=== PATIENT | female | born 1990 | race Caucasian/White ===

== ENCOUNTER → 2023-04-27 01:37 | Outpatient (CLI) | payer OTHER, SELFPAY ==
--- NOTE | 2023-04-27 11:17 | DI.RAD_ITS ---
Exam(s) XR LUMBAR SPINE AP, LAT EXAM: XR LUMBAR SPINE AP, LAT CLINICAL HISTORY: DISABILITY DETERMINATION,Z02.71,LOW BACK PAIN,STATE SEVERITY. TECHNIQUE: 2D digital imaging was performed. COMPARISON: No exams were available for comparison FINDINGS: Two views. No evidence of fracture, listhesis, nor pars defects. There is no disc space narrowing. Bone densit y normal. No osseous lesions. No scoliosis. Sacroiliac joints appear unremarkable. IMPRESSION: No significant radiograph findings on these two views of the lumbosacral spinal column. DATA REPOSITORY: RADIATION DOSE DELIVERED:
--- NOTE | 2023-04-27 11:18 | DI.RAD_ITS ---
Exam(s) XR CERVICAL SP POSADA TRAUMA 2-3V EXAM: XR CERVICAL SP POSADA TRAUMA 2-3V CLINICAL HISTORY: DISABILITY DETERMINATION,Z02.71,NECK PAIN,STATE SEVERITY. TECHNIQUE: 2D digital imaging was performed. COMPARISON: No exams were available for comparison FINDINGS: Four views. No evidence fracture, listhesis, nor offset of the spinal laminar line. No disc space narrowing. No cervical ribs. No facet arthropathy nor facet malalignment. No prevertebral soft tissue swelling. However, the lateral view reveals some reversal of the normal curvature cervical spine which is proba tc related to muscle spasm. IMPRESSION: No acute osseous findings and no disc space narrowing. Reversal of the curvature as described above. DATA REPOSITORY: RADIATION DOSE DELIVERED:
--- NOTE | 2023-04-27 11:18 | DI.RAD_ITS ---
Exam(s) XR HIP LT COMPLETE AP PELVIS EXAM: XR HIP LT COMPLETE AP PELVIS CLINICAL HISTORY: LT HIP PAIN, DISABILITY DETERMINATION,Z02.71,STATE SEVERITY. TECHNIQUE: 2D digital imaging was performed. COMPARISON: No exams were available for comparison FINDINGS: Two views. No evidence of pelvic nor hip fractures. No evidence of avascular necrosis no evidence of developmen [place] hip dysplasia. Sacroiliac joints appear unremarkable. There are no degenerative changes in the hips. Bone density normal. No osseous lesions. Additional lateral view of the left hip reveals no evidence of osteophytes nor joint space narrowing. IMPRESSION: No significant osseous findings in the pelvis and hips. DATA REPOSITORY: RADIATION DOSE DELIVERED:
== END ==
PROVIDERS: Visit Provider Pediatrics Pediatric Rheumatology
DX: Z02.71 Encounter for disability determination (principal)
CPT/HCPCS: 72040; 72100; 73502

== ENCOUNTER 2023-06-09 01:51 | Outpatient (CLI) | payer MEDICAID, SELFPAY ==
[2023-06-09 09:41] LABS: Abs Immature Grans 0.05 10^3/uL (0.0-0.06); Absolute Basophil Count 0.04 10^3/uL (0.0-0.2); Absolute Eosinophil Count 0.11 10^3/uL (0.0-0.7); Absolute Lymphocyte Count 2.01 10^3/uL (1.2-3.4); Absolute Monocyte Count 0.56 10^3/uL (0.1-0.8); Basophils % 0.3; Eosinophils % 0.8; HCT 37.5 % (36.0-46.0); HGB 12.3 g/dL (11.2-15.7); Immature Grans % 0.4; MCH 29.4 pg (27.0-33.0); MCHC 32.8 % (32.0-36.0); MCV 90 fL (80-95); MPV 10.1 fL (8.0-11.0); Monocytes % 4.2; Neutrophils % 79.3; Platelet Count 445 10^3/uL (130-400); RBC 4.18 10^6/uL (3.93-5.22); RDW-SD 42.5 fL; WBC 13.37 10^3/uL (4.4-10.8)
[2023-06-09 10:36] LABS: Iron 59 ug/dL (50-170); Total Iron Binding Capacity 262 ug/dL (250-450); Transferrin Sat 23 % (15-50)
[2023-06-09 10:37] LABS: ALT 19 U/L (14-59); AST 16 U/L (15-37); Albumin 3.5 g/dL (3.4-5.0); Alkaline Phosphatase 127 U/L (46-116); Anion Gap 10.7 mmol/L (3-11); BUN 12 mg/dL (7-18); Bilirubin, Total 0.5 mg/dL (0.2-1.0); CO2 26.3 mmol/L (21.0-32.0); CREATININE 0.9 mg/dL (0.55-1.02); Calcium 9.2 mg/dL (8.5-10.1); Chloride 100 mmol/L (98-107); Estimated GFR 87.65 (mL/min/1.73m2); Ferritin 46 ng/mL (8-252); Glucose 114 mg/dL (74-106); Potassium 4.4 mmol/L (3.5-5.1); Sodium 137 mmol/L (136-145); Vitamin B12 746 pg/mL (193-986)
[2023-06-09 10:39] LABS: Folate > 20.0 ng/mL (8.6-20.0)
== END 2023-06-09 01:52 | disposition home or self-care (01) ==
LOC: LBO 01:51
PROVIDERS: Visit Provider Naturopath
DX: G25.81 Restless legs syndrome (principal); K52.9 Noninfective gastroenteritis and colitis, unspecified
CPT/HCPCS: 36415; 80053; 82607; 82728; 82746; 83540; 83550; 83735; 85025

== ENCOUNTER 2023-06-29 03:13 | Outpatient (CLI) | payer MEDICAID, SELFPAY ==
[2023-06-29 10:48] LABS: Abs Immature Grans 0.05 10^3/uL (0.0-0.06); Absolute Basophil Count 0.06 10^3/uL (0.0-0.2); Absolute Eosinophil Count 0.46 10^3/uL (0.0-0.7); Basophils % 0.5; Eosinophils % 3.9; HCT 36.9 % (36.0-46.0); HGB 12.1 g/dL (11.2-15.7); Immature Grans % 0.4; Lymphocytes % 21.9; MCH 29.7 pg (27.0-33.0); MCHC 32.8 % (32.0-36.0); MCV 90 fL (80-95); MPV 11.2 fL (8.0-11.0); Monocytes % 4.1; Neutrophils % 69.2; Platelet Count 417 10^3/uL (130-400); RBC 4.08 10^6/uL (3.93-5.22); RDW 13.3 % (11.7-14.6); RDW-SD 44.1 fL; WBC 11.85 10^3/uL (4.4-10.8)
[2023-06-29 10:50] LABS: Absolute Monocyte Count 0.49 10^3/uL (0.1-0.8)
[2023-06-29 10:53] LABS: ESR 42 mm/hr (0-20)
[2023-06-29 12:06] LABS: ALT 32 U/L (14-59); AST 22 U/L (15-37); Albumin 3.5 g/dL (3.4-5.0); Alkaline Phosphatase 113 U/L (46-116); Anion Gap 10.8 mmol/L (3-11); BUN 14 mg/dL (7-18); Bilirubin, Total 0.4 mg/dL (0.2-1.0); CO2 28.2 mmol/L (21.0-32.0); CREATININE 0.9 mg/dL (0.55-1.02); Chloride 102 mmol/L (98-107); Estimated GFR 87.65 (mL/min/1.73m2); Glucose 107 mg/dL (74-106); Potassium 3.8 mmol/L (3.5-5.1); Sodium 141 mmol/L (136-145); Total Protein 7.6 g/dL (6.4-8.2)
[2023-06-29 19:27] LABS: C-Reactive Protein 2.84 mg/dL (<or=0.5)
[2023-06-30 14:33] LABS: ANA Interpretation Negative (Negative)
[2023-06-30 17:32] LABS: dsDNA Ab, IgG <22.0 IU/mL (<27.0)
[2023-06-30 18:33] LABS: RNP Ab, IgG <6.0 CU (<20.0); Sm (Smith) Ab, IgG <8.0 CU (<20.0)
== END 2023-06-29 03:14 | disposition home or self-care (01) ==
LOC: LBO 03:13
PROVIDERS: Visit Provider Naturopath
DX: G25.81 Restless legs syndrome (principal); K52.9 Noninfective gastroenteritis and colitis, unspecified
CPT/HCPCS: 36415; 80053; 85652; 85025; 86038; 86140; 86225; 86235

== ENCOUNTER → 2023-09-07 03:07 | Outpatient (CLI) | payer MEDICAID, SELFPAY ==
--- NOTE | 2023-09-07 | DI.DEXA_ITS ---
Exam(s) XR DEXA BONE DENSITY W/WO MANUEL EXAM: XR DEXA BONE DENSITY W/WO MANUEL CLINICAL HISTORY: N91.2 Amenorrhea TECHNIQUE: Routine DEXA evaluation of the lumbar spine, hip, or forearm. COMPARISON: No exams were available for comparison FINDINGS: Performed on a Hologic unit. Lateral image: No compression fracture evident. Lumbar Spine total T-score: -1.2 Hip total T-score:1.4 Independent reading at the level of the femoral neck yields T-score of 0.8 Forearm total T-score: -1.5 IMPRESSION: Bone mineral density measures in the osteopenia range. Fracture risk is moderate. Note: Any spine fracture indicates 5x risk for subsequent spine fracture and 2x risk for subsequent h ip fracture. World Health Organization criteria for BMD interpretation classify patients: Normal...... T- Score at or above -1.0 Osteopenic... T- Score between -1.0 and -2.5 Osteoporosis... T-Score at or below -2.5
== END ==
PROVIDERS: PCP Registered Nurse Critical Care Medicine; Visit Provider Internal Medicine Endocrinology, Diabetes & Metabolism
DX: Z13.820 Encounter for screening for osteoporosis (principal); N91.2 Amenorrhea, unspecified
CPT/HCPCS: 77080

== ENCOUNTER 2023-09-07 10:55 | Outpatient (CLI) | payer MEDICAID, SELFPAY ==
[2023-09-07 10:51] LABS: ALT 39 U/L (14-59); AST 23 U/L (15-37); Albumin 3.7 g/dL (3.4-5.0); Alkaline Phosphatase 104 U/L (46-116); BUN 9 mg/dL (7-18); Bilirubin, Total 0.4 mg/dL (0.2-1.0); CREATININE 0.9 mg/dL (0.55-1.02); Calcium 9.1 mg/dL (8.5-10.1); Chloride 102 mmol/L (98-107); Estimated GFR 87.65 (mL/min/1.73m2); FREE T4 1.16 ng/dL (0.76-1.46); Glucose 110 mg/dL (74-106); Potassium 3.8 mmol/L (3.5-5.1); Sodium 139 mmol/L (136-145); TSH 0.23 uIU/Ml (0.36-3.74); Total Protein 7.7 g/dL (6.4-8.2)
[2023-09-07 11:22] LABS: Vitamin D 25 Total 29.8 ng/mL (30-100)
[2023-09-07 11:36] LABS: Vitamin B12 1186 pg/mL (193-986)
[2023-09-07 19:12] LABS: T3,Free 5.8 pg/mL (2.8-5.3)
[2023-09-07 19:58] LABS: Estradiol 16 pg/mL (See Note); Progesterone 0.2 ng/mL (See Table)
[2023-09-07 20:06] LABS: FSH 6.6 mIU/mL (See Note); Parathyroid Hormone,Intact 71 pg/mL (19-88); Prolactin 0.4 ng/mL (See Note)
[2023-09-08 19:10] LABS: Adrenocorticotropic Hormone, P 18 pg/mL
[2023-09-13 18:38] LABS: IGF-1, LC/MS, S 97 ng/mL (59-279); Z-score -1.04 SD
[2023-09-15 16:33] LABS: Testosterone, Bioavailable 2.3 ng/dL; Testosterone, Free 0.21 ng/dL (<0.13-1.03); Testosterone, Total 9.4 ng/dL (8-60)
== END 2023-09-07 10:56 | disposition home or self-care (01) ==
LOC: LBO 10:56
PROVIDERS: PCP Registered Nurse Critical Care Medicine; Visit Provider Internal Medicine Endocrinology, Diabetes & Metabolism
DX: E28.2 Polycystic ovarian syndrome (principal); E23.6 Other disorders of pituitary gland
CPT/HCPCS: 36415; 80053; 82306; 82533; 84402; 84403; 84410; 82024; 82607; 82670; 83001; 83002; 83970; 84144; 84146; 84305; 84439; 84443; 84481

== ENCOUNTER 2024-05-23 02:00 | Outpatient (CLI) | payer BC, SELFPAY ==
[2024-05-23 08:03] LABS: Hemoglobin A1C 5.5 % (<5.7)
[2024-05-23 08:13] LABS: Iron 44 ug/dL (50-170); Total Iron Binding Capacity 239 ug/dL (250-450); Transferrin Sat 18 % (15-50)
[2024-05-23 08:25] LABS: TSH 1.11 uIU/mL (0.36-3.74)
[2024-05-23 08:43] LABS: Calculated LDL 143 mg/dL (<100); Cholesterol 211 mg/dL (<200); Ferritin 62 ng/mL (8-252); Folate 13.5 ng/mL (8.6-20.0); HDL Cholesterol 45 mg/dL (40-60); Triglyceride 116 mg/dL (<150); Vitamin B12 727 pg/mL (193-986); Vitamin D 25 Total 54.1 ng/mL (30-100)
[2024-05-23 09:00] LABS: FREE T4 1.16 ng/dL (0.76-1.46)
[2024-05-23 21:47] LABS: T3,Free 4.2 pg/mL (2.8-5.3)
[2024-05-23 22:39] LABS: Prolactin 25.3 ng/mL (See Note)
[2024-05-24 09:27] LABS: Homocysteine 8.8 umol/L (5.0-13.9)
[2024-05-27 13:12] LABS: Apolipoprotein A1, S 116 mg/dL (>=140); Apolipoprotein B, S 120 mg/dL (See Comment)
== END 2024-05-23 02:01 | disposition home or self-care (01) ==
PROVIDERS: Internal Medicine Endocrinology, Diabetes & Metabolism; PCP Registered Nurse Critical Care Medicine; Visit Provider Naturopath
DX: N92.1 Excessive and frequent menstruation with irregular cycle (principal); E78.5 Hyperlipidemia, unspecified; E61.1 Iron deficiency; E55.9 Vitamin D deficiency, unspecified; E06.3 Autoimmune thyroiditis
CPT/HCPCS: 36415; 80061; 82172; 82306; 83090; 82607; 82728; 82746; 83036; 83540; 83550; 84146; 84439; 84443; 84481

== ENCOUNTER 2024-11-27 13:06 | Outpatient (CLI) | payer BC, SELFPAY ==
[2024-11-27 11:39] LABS: Hemoglobin A1C 5.0 % (<5.7)
[2024-11-27 11:48] LABS: TSH 0.59 uIU/mL (0.36-3.74)
[2024-11-27 12:02] LABS: Calculated LDL 172 mg/dL (<100); Cholesterol 233 mg/dL (<200); HDL Cholesterol 41 mg/dL (>or=50); Triglyceride 101 mg/dL (<150)
[2024-11-27 14:53] LABS: Abs Immature Grans 0.06 10^3/uL (0.0-0.06); HCT 36.6 % (36.0-46.0); HGB 12.5 g/dL (11.2-15.7); Immature Grans % 0.5 %; MCH 31.4 pg (27.0-33.0); MCHC 34.2 % (32.0-36.0); MCV 92 fL (80-95); MPV 11.0 fL (8.0-11.0); Platelet Count 407 10^3/uL (130-400); RBC 3.98 10^6/uL (3.93-5.22); RDW 12.3 % (11.7-14.6); RDW-SD 40.8 fL; WBC 12.61 10^3/uL (4.4-10.8)
[2024-11-27 18:33] LABS: FSH 4.2 mIU/mL (See Note); LH 4.9 mIU/mL (See Note)
[2024-11-27 22:44] LABS: ALT 26 U/L (14-59); AST 21 U/L (15-37); Albumin 3.5 g/dL (3.4-5.0); Alkaline Phosphatase 97 U/L (46-116); Anion Gap 11.2 mmol/L (3-11); BUN 11 mg/dL (7-18); Bilirubin, Total 0.3 mg/dL (0.2-1.0); CO2 25.8 mmol/L (21.0-32.0); Calcium 9.2 mg/dL (8.5-10.1); Chloride 101 mmol/L (98-107); Ferritin 78 ng/mL (8-252); Glucose 92 mg/dL (74-106); Potassium 4.1 mmol/L (3.5-5.1); Sodium 138 mmol/L (136-145); Total Protein 7.5 g/dL (6.4-8.2); Vitamin B12 1097 pg/mL (193-986)
[2024-11-27 22:52] LABS: Folate > 20.0 ng/mL (8.6-20.0)
[2024-11-27 22:56] LABS: Estimated GFR 117.77 (mL/min/1.73m2)
[2024-11-27 23:14] LABS: T3,Free 3.9 pg/mL (2.8-5.3)
[2024-11-27 23:56] LABS: CRP, High Sensitivity >15.00 mg/L (See Note)
[2024-11-28 18:40] LABS: Iron 50 ug/dL (50-170); Total Iron Binding Capacity 246 ug/dL (250-450); Transferrin Sat 20 % (15-50)
[2024-11-28 19:48] LABS: Vitamin D 25 Total 42 ng/mL (30-100)
[2024-11-29 12:11] LABS: Adrenocorticotropic Hormone, P 23 pg/mL
[2024-12-01 07:37] LABS: Apolipoprotein A1, S 127 mg/dL (>=140); Apolipoprotein B, S 133 mg/dL (See Comment); Apolipoprotein B/A 1 ratio 1.0 (See Comment)
[2024-12-01 17:47] LABS: Estradiol, Mass Spectrometry 121 pg/mL
== END 2024-11-27 13:07 | disposition home or self-care (01) ==
LOC: LBO 13:07
PROVIDERS: Internal Medicine; Nurse Practitioner Psychiatric/Mental Health; PCP Registered Nurse Critical Care Medicine; Visit Provider Naturopath
DX: E78.2 Mixed hyperlipidemia (principal); N92.6 Irregular menstruation, unspecified; E23.6 Other disorders of pituitary gland; E03.9 Hypothyroidism, unspecified
CPT/HCPCS: 36415; 80053; 80061; 80186; 82172; 82306; 82525; 82533; 83090; 84630; 86141; 82024; 82607; 82670; 82679; 82728; 82746; 83001; 83002; 83036; 83525; 83540; 83550; 84146; 84207; 84439; 84443; 84481; 85025

== ENCOUNTER 2025-02-26 01:55 | Outpatient (CLI) | payer BC, SELFPAY ==
[2025-02-26 17:02] LABS: Abs Immature Grans 0.05 10^3/uL (0.0-0.06); HCT 38.1 % (36.0-46.0); HGB 12.5 g/dL (11.2-15.7); Immature Grans % 0.5 %; MCH 29.9 pg (27.0-33.0); MCHC 32.8 % (32.0-36.0); MCV 91 fL (80-95); MPV 11.1 fL (8.0-11.0); Platelet Count 398 10^3/uL (130-400); RBC 4.18 10^6/uL (3.93-5.22); RDW 12.0 % (11.7-14.6); RDW-SD 40.3 fL; WBC 10.86 10^3/uL (4.4-10.8)
[2025-02-26 18:59] LABS: Iron 47 ug/dL (50-170); Total Iron Binding Capacity 283 ug/dL (250-425); Transferrin Sat 17 % (15-50)
[2025-02-26 19:04] LABS: Ferritin 60 ng/mL (7-271); Folate 17.6 ng/mL (>5.38)
[2025-02-26 19:05] LABS: Vitamin B12 605 pg/mL (211-911)
[2025-02-27 18:08] LABS: CRP, High Sensitivity 14.11 mg/L (See Note)
[2025-03-01 12:16] LABS: Copper, Serum 168 mcg/dL (77-206)
[2025-03-01 13:11] LABS: Zinc, S 60 mcg/dL (60-106)
[2025-03-03 17:48] LABS: Pyridoxal 5-Phosphate (PLP), P 8 mcg/L (5-50)
== END 2025-02-26 01:56 | disposition home or self-care (01) ==
PROVIDERS: Nurse Practitioner Psychiatric/Mental Health; PCP Registered Nurse Critical Care Medicine; Visit Provider Naturopath
DX: M25.50 Pain in unspecified joint (principal); G89.29 Other chronic pain; E61.1 Iron deficiency; R53.81 Other malaise; K90.9 Intestinal malabsorption, unspecified
CPT/HCPCS: 36415; 82525; 83090; 84630; 86141; 82607; 82728; 82746; 83540; 83550; 84207; 85025

== ENCOUNTER 2025-03-14 02:20 | Outpatient (CLI) | payer BC, SELFPAY ==
[2025-03-14 08:28] LABS: Hemoglobin A1C 5.2 % (<5.7)
[2025-03-14 09:45] LABS: Vitamin D 25 Total 44 ng/mL (30-100)
== END 2025-03-14 02:21 | disposition home or self-care (01) ==
LOC: LBO 02:20
PROVIDERS: PCP Registered Nurse Critical Care Medicine; Visit Provider Naturopath
DX: E55.9 Vitamin D deficiency, unspecified (principal); R73.03 Prediabetes
CPT/HCPCS: 36415; 82306; 83036

== ENCOUNTER 2025-04-08 14:34 | Outpatient (CLI) | payer BC, SELFPAY ==
[2025-04-11 09:57] LABS: Ro60 Ab, IgG <7.0 CU (<20.0); SS-A/Ro, IgG <2.3 CU (<20.0); SS-B (La) Ab, IgG <3.3 CU (<20.0)
== END 2025-04-08 14:35 | disposition home or self-care (01) ==
LOC: LBO 04-23 14:34
PROVIDERS: PCP Registered Nurse Critical Care Medicine; Visit Provider Naturopath
DX: M25.571 Pain in right ankle and joints of right foot (principal); H04.123 Dry eye syndrome of bilateral lacrimal glands
CPT/HCPCS: 36415; 86200; 86038; 86235; 86431